=== PATIENT | male | born 1955 | race Caucasian/White ===

== ENCOUNTER 2020-07-30 09:39 | Inpatient (IN) ==
[2020-07-30] MEDS ORDERED: DEXTROSE 50% 25 GM/50 ML VIAL IV PRN ×2 (10:56)
[2020-07-30] MEDS ORDERED: GLUCAGON 1 MG VIAL IM PRN ×2 (10:56)
[2020-07-30 13:06] LABS: Basophils # 0.1 10*3/uL (0.0-0.2); Basophils % 0.9 % (0.0-0.8); Eosinophils # 0.2 10*3/uL (0.0-0.87); Hematocrit 42.1 VOL% (42.0-52.0); Hemoglobin 14.4 GM/DL (14.0-18.0); Immature Granulocytes % 0.3 %; Immature Granulocytes Absolute 0.02 #; Lymphocytes # 2.3 10*3/uL (1.4-4.0); Mean Corpuscular HGB Conc 34.2 GM/DL (32-36); Mean Corpuscular Volume 89.2 FL (87-102); Mean Platelet Volume 11.7 FL (9.6-12.0); Neutrophils % 59.8 % (38.7-73.9); Platelet Count 174 T/CUMM (130-400); Red Blood Count 4.72 MC/CUMM (3.8-5.5); Red Cell Distribution Width 13.2 % (9.3-17.3)
[2020-07-30] MEDS ORDERED: INFLUENZA VIRUS VACCINE 0.5 ML SYRINGE IM ONE (13:09)
[2020-07-30 13:31] LABS: Albumin 3.9 G/DL (3.4-5.0); Bilirubin,Total 0.5 MG/DL (0.2-1.0); Calcium 9.1 MG/DL (8.5-10.1); Osmolality,Calculated 281.5 MOS/KG (273-304); Total Protein 7.8 G/DL (6.4-8.3)
[2020-07-30] MEDS ORDERED: CLORAZEPATE 3.75 MG TABLET PO PRN (14:38)
[2020-07-30] MEDS ORDERED: NITROGLYCERIN SL 0.4 MG TABLET SL PRN (14:39)
[2020-07-30] MEDS ORDERED: MORPHINE 4 MG/1 ML VIAL IV PRN (14:39)
[2020-07-30 18:37] LABS: ABG Base Excess -1.3 MMOL/L (-2.5-2.5); ABG HCO3 23.3 MMOL/L (20-26); ABG Oxygen Saturation 96.9 % (95-100); ABG PCO2 36.8 MM HG (35-48); ABG PH 7.403 (7.35-7.45); ABG PO2 82.2 MM HG (80-95); ABG TCO2 19.9 MMOL/L (23-27); Allen Test Positive; Pt O2 Delivery Device Room Air
[2020-07-30] MEDS: INSULIN REGULAR 100 UNIT/ML SUBCUT SCH ×2 (20:04→22:22)
[2020-07-30] MEDS: CHLORHEXIDINE 4% SOLN 118 ML BOTTLE TOP SCH ×2 (20:07→21:53)
[2020-07-30] MEDS: CHLORHEXIDINE 0.12% ORAL RINSE 60 ML BOTTLE SWISH/SPIT SCH (22:23)
[2020-07-31] MEDS: SODIUM CHLORIDE 0.9% 1,000 ML IV SCH ×2 (01:00→11:07)
[2020-07-31] MEDS ORDERED: PAPAVERINE 60 MG/2 ML VIAL ONE (04:20)
[2020-07-31] MEDS ORDERED: VANCOMYCIN 500 MG VIAL ONE (04:20)
[2020-07-31] MEDS ORDERED: VANCOMYCIN 1,000 MG VIAL ONE (04:20)
[2020-07-31] MEDS ORDERED: SEVOFLURANE 1 UNIT/15 MINUTE INH ONE (05:55)
[2020-07-31] MEDS ORDERED: MINERAL OIL/PETROLATUM OPH OINT 3.5 GM TUBE ONE (05:55)
[2020-07-31] MEDS ORDERED: PHENYLEPHRINE 10 MG/1 ML VIAL IV ONE (05:56)
[2020-07-31] MEDS ORDERED: AMINOCAPROIC ACID 5,000 MG/20 ML VIAL ONE ×4 (05:56)
[2020-07-31] MEDS ORDERED: VECURONIUM 10 MG VIAL IV ONE ×4 (05:56)
[2020-07-31] MEDS ORDERED: MIDAZOLAM 10 MG/2 ML VIAL ONE ×4 (05:57)
[2020-07-31] MEDS ORDERED: SUFentanil 250 MCG/5 ML AMP ONE ×2 (05:57→07:34)
[2020-07-31] MEDS ORDERED: ETOMIDATE 40 MG/20 ML VIAL IV ONE (05:58)
[2020-07-31] MEDS ORDERED: CALCIUM CHLORIDE 1,000 MG/10 ML VIAL IV ONE (05:58)
[2020-07-31] MEDS ORDERED: LIDOCAINE 2% 5 ML VIAL ONE ×2 (05:58→11:15)
[2020-07-31] MEDS ORDERED: HEPARIN/NACL 0.9% 2 UNITS/ML 500 ML IV ONE (05:59)
[2020-07-31] MEDS ORDERED: SODIUM CHLORIDE 0.9% 250 ML IV ONE (05:59)
[2020-07-31] MEDS ORDERED: CEFUROXIME INJ 1,500 MG in SYRINGE 1 EACH IV ONE (06:00)
[2020-07-31] MEDS ORDERED: LACTATED RINGERS 1,000 ML IV ONE (06:01)
[2020-07-31] MEDS ORDERED: SODIUM CHLORIDE 0.9% 1,000 ML IV ONE (06:01)
[2020-07-31] MEDS ORDERED: PANTOPRAZOLE 40 MG TABLET PO ONE (06:30)
[2020-07-31] MEDS ORDERED: LORazepam 1 MG TABLET PO ONE (06:30)
[2020-07-31 07:33] LABS: ABG Base Excess -2.2 MMOL/L (-2.5-2.5); ABG HCO3 22.6 MMOL/L (20-26); ABG Oxygen Saturation 99.7 % (95-100); ABG PCO2 43.4 MM HG (35-48); ABG PH 7.345 (7.35-7.45); ABG TCO2 20.6 MMOL/L (23-27); Glucose Heart Surgery 126 MG/DL (74-106); Hematocrit Heart Surgery 41.9 PERCENT (42-52); Hemoglobin Heart Surgery 13.6 G/DL (14.0-18.0); Ionized Calcium Arterial 1.21 MMOL/L (1.21-1.46); PCO2 Patient Temp Arterial 43.4 MMHG; PH Patient Temp Arterial 7.345; Patient Temperature 37 CELCIUS; Sodium Heart/CVR 140 MMOL/L (135-145)
[2020-07-31] MEDS ORDERED: ALBUMIN 5% 12.5 GM/250 ML VIAL IV ONE (07:34)
[2020-07-31] MEDS ORDERED: PHENYLEPHRINE DRIP 40 MG/250 ML PREMIX IV ONE (07:35)
[2020-07-31 07:38] LABS: Bilirubin,Urine Negative (Negative); Blood, Urine Negative (Negative); Glucose,Urine (UA) >=500 mg/dL (Negative); Ketones,Urine Negative (Negative); Mucus,Urine Occasional /LPF (Occasional); Nitrite,Urine Negative (Negative); Protein,Urine Negative; RBC,Urine 2 /HPF (0-4); Urine Appearance CLEAR (Clear); Urine Color Straw (Yellow); Urine Specific Gravity 1.016 (1.001-1.035); Urine Urobilinogen < 2.0 EU/DL (0.2-1.0)
[2020-07-31] MEDS ORDERED: diphenhydrAMINE 50 MG/1 ML VIAL ONE (08:15)
[2020-07-31 09:37] LABS: Hematocrit Heart Surgery 32.5 PERCENT (42-52); Hemoglobin Heart Surgery 10.5 G/DL (14.0-18.0); PH Patient Temp Venous 7.394; PO2 Patient Temp Venous 37.6 MM HG; Potassium Heart/CVR 5.1 MMOL/L (3.5-5.1); VBG Base Excess -0.3 MEQ/L (0-4); VBG HCO3 23.9 MEQ/L (24-28); VBG Oxygen Saturation 80.6 %; VBG PCO2 46.3 MMHG (41-51); VBG PH 7.351; VBG PO2 46.2 MMHG (17-40)
[2020-07-31] MEDS ORDERED: FAMOTIDINE 20 MG/2 ML VIAL IV ONE (09:42)
[2020-07-31 10:06] LABS: PCO2 Patient Temp Venous 39.3 MM HG; PH Patient Temp Venous 7.406; PO2 Patient Temp Venous 36.2 MM HG; Potassium Heart/CVR 5.7 MMOL/L (3.5-5.1); VBG Base Excess 0.1 MEQ/L (0-4); VBG HCO3 24.1 MEQ/L (24-28); VBG Oxygen Saturation 73.7 %; VBG PCO2 41.3 MMHG (41-51); VBG PH 7.391; VBG PO2 38.8 MMHG (17-40)
[2020-07-31 10:37] LABS: Hematocrit Heart Surgery 36.7 PERCENT (42-52); Hemoglobin Heart Surgery 11.9 G/DL (14.0-18.0); PCO2 Patient Temp Venous 41.9 MM HG; PH Patient Temp Venous 7.382; Potassium Heart/CVR 5.6 MMOL/L (3.5-5.1); VBG Base Excess -0.3 MEQ/L (0-4); VBG HCO3 23.7 MEQ/L (24-28); VBG Oxygen Saturation 71.7 %; VBG PCO2 41.9 MMHG (41-51); VBG PH 7.382
[2020-07-31 11:02] LABS: ABG Base Excess -2.3 MMOL/L (-2.5-2.5); ABG HCO3 22.5 MMOL/L (20-26); ABG PCO2 38.4 MM HG (35-48); ABG PH 7.376 (7.35-7.45); ABG PO2 97.3 MM HG (80-95); ABG TCO2 20.1 MMOL/L (23-27); Glucose Heart Surgery 202 MG/DL (74-106); Hematocrit Heart Surgery 35.8 PERCENT (42-52); Hemoglobin Heart Surgery 11.6 G/DL (14.0-18.0); Ionized Calcium Arterial 1.27 MMOL/L (1.21-1.46); PCO2 Patient Temp Arterial 38.4 MMHG; PH Patient Temp Arterial 7.376; PO2 Patient Temp Arterial 97.3 MM HG; Patient Temperature 37 CELCIUS; Potassium Heart/CVR 4.7 MMOL/L (3.5-5.1); Sodium Heart/CVR 135 MMOL/L (135-145)
[2020-07-31] MEDS: CHLORHEXIDINE 4% SOLN 118 ML BOTTLE TOP SCH (11:07)
[2020-07-31] MEDS: INSULIN REGULAR 100 UNIT/ML SUBCUT SCH (11:07)
[2020-07-31] MEDS: CHLORHEXIDINE 0.12% ORAL RINSE 60 ML BOTTLE SWISH/SPIT SCH ×2 (11:07→20:20)
[2020-07-31] MEDS ORDERED: methylPREDNISolone SOD SUC 1,000 MG/8 ML VIAL ONE (11:15)
[2020-07-31] MEDS ORDERED: HEPARIN 10,000 UNIT/10 ML VIAL ONE (11:15)
[2020-07-31] MEDS ORDERED: DEXTROSE 5% KCL 20 MEQ 20 MEQ/1,000 ML BAG IV ONE (11:15)
[2020-07-31] MEDS ORDERED: MAGNESIUM SULFATE 5 GM/10 ML VIAL IV ONE (11:15)
[2020-07-31] MEDS ORDERED: PROTAMINE SULFATE 250 MG/25 ML VIAL IV ONE (11:15)
[2020-07-31] MEDS ORDERED: ALBUMIN 25% 25 GM/100 ML VIAL IV ONE (11:15)
[2020-07-31] MEDS ORDERED: MANNITOL 100 GM/500 ML BAG IV ONE (11:15)
[2020-07-31] MEDS ORDERED: FUROSEMIDE 20 MG/2 ML VIAL ONE (11:16)
[2020-07-31] MEDS ORDERED: PROTAMINE SULFATE 50 MG/5 ML VIAL IV ONE ×3 (11:16→11:48)
[2020-07-31] MEDS ORDERED: SODIUM BICARBONATE 50 MEQ/50 ML VIAL IV ONE (11:16)
[2020-07-31] MEDS ORDERED: MIDAZOLAM 10 MG/2 ML VIAL IV PRN (11:19)
[2020-07-31] MEDS ORDERED: DEXTROSE 50% 25 GM/50 ML VIAL IV PRN ×2 (11:19)
[2020-07-31] MEDS ORDERED: NITROPRUSSIDE 100 MG in DEXTROSE 5% 250 ML IV PRN (11:19)
[2020-07-31] MEDS ORDERED: ONDANSETRON 4 MG/2 ML VIAL IV PRN (11:19)
[2020-07-31] MEDS ORDERED: MORPHINE 4 MG/1 ML VIAL IV PRN (11:19)
[2020-07-31] MEDS ORDERED: VECURONIUM 10 MG VIAL IV PRN ×2 (11:19)
[2020-07-31] MEDS ORDERED: MAGNESIUM SULF RIDER 2 GM in PREMIX 1 EACH IV PRN (11:19)
[2020-07-31] MEDS ORDERED: CALCIUM CHLORIDE 1,000 MG/10 ML SYRINGE IV PRN (11:19)
[2020-07-31] MEDS ORDERED: MIDAZOLAM 2 MG/2 ML VIAL IV PRN (11:19)
[2020-07-31] MEDS ORDERED: MAGNESIUM SULF RIDER 4 GM in PREMIX 1 EACH IV PRN (11:19)
[2020-07-31] MEDS ORDERED: INSULIN REGULAR 100 UNIT/ML IV PRN (11:19)
[2020-07-31] MEDS ORDERED: CHLORHEXIDINE 4% SOLN 118 ML BOTTLE TOP PRN (11:19)
[2020-07-31] MEDS ORDERED: MORPHINE 10 MG/1 ML VIAL IV PRN (11:19)
[2020-07-31] MEDS ORDERED: PHENYLEPHRINE DRIP 40 MG/250 ML PREMIX IV PRN (11:19)
[2020-07-31] MEDS ORDERED: INSULIN REGULAR 100 UNIT/ML IV ONE (11:19)
[2020-07-31] MEDS ORDERED: LACTATED RINGERS 250 ML IV PRN (11:19)
[2020-07-31] MEDS ORDERED: ACETAMINOPHEN 650 MG SUPP RECTAL PRN (11:19)
[2020-07-31] MEDS ORDERED: INSULIN REGULAR DRIP 100 ML IV SCH (11:30)
[2020-07-31] MEDS: SODIUM CHLORIDE 0.45% 1,000 ML IV SCH ×2 (11:33)
[2020-07-31] MEDS: ALBUMIN 5% 12.5 GM in PREMIX 1 EACH IV PRN ×4 (11:50→15:18)
[2020-07-31 11:55] LABS: ABG Base Excess -1.6 MMOL/L (-2.5-2.5); ABG HCO3 23.1 MMOL/L (20-26); ABG Oxygen Saturation 99.5 % (95-100); ABG PCO2 37.9 MM HG (35-48); ABG PH 7.391 (7.35-7.45); ABG TCO2 20.2 MMOL/L (23-27); Glucose Heart Surgery 166 MG/DL (74-106); Hematocrit Heart Surgery 38.7 PERCENT (42-52); Hemoglobin Heart Surgery 12.6 G/DL (14.0-18.0)
[2020-07-31] MEDS: LACTATED RINGERS 1,000 ML IV PRN ×4 (12:00→15:35)
[2020-07-31 12:03] LABS: Basophils % 0.4 % (0.0-0.8); Eosinophils # 0.1 10*3/uL (0.0-0.87); Eosinophils % 0.6 % (0.00-10.9); Hematocrit 36.2 VOL% (42.0-52.0); Hemoglobin 12.5 GM/DL (14.0-18.0); Immature Granulocytes % 0.4 %; Immature Granulocytes Absolute 0.05 #; Lymphocytes # 0.9 10*3/uL (1.4-4.0); Lymphocytes % 8.2 % (21.2-54.2); Mean Corpuscular HGB Conc 34.5 GM/DL (32-36); Mean Corpuscular Volume 89.2 FL (87-102); Mean Platelet Volume 11.6 FL (9.6-12.0); Monocytes % 3.8 % (1.7-12.7); Neutrophils % 86.6 % (38.7-73.9); Platelet Count 136 T/CUMM (130-400); Red Blood Count 4.06 MC/CUMM (3.8-5.5); Red Cell Distribution Width 13.2 % (9.3-17.3); White Blood Count 11.2 T/CUMM (4-12)
[2020-07-31 12:17] LABS: INR 1.1; PT Patient Result 12.1 SECS (9.8-11.9); Partial Thromboplastin Time 29.6 SECS (23.9-33.8)
[2020-07-31 12:18] LABS: CKMB % 6.9 %
[2020-07-31 12:21] LABS: Troponin I 4.12 NG/ML (0.00-0.045)
[2020-07-31 12:29] LABS: Albumin 3.5 G/DL (3.4-5.0); Bilirubin,Total 0.9 MG/DL (0.2-1.0); Calcium 8.7 MG/DL (8.5-10.1); Osmolality,Calculated 288.1 MOS/KG (273-304); Total Protein 6.1 G/DL (6.4-8.3)
[2020-07-31 12:30] LABS: Platelet Estimate Adequate
[2020-07-31 12:31] LABS: Anisocytosis Slight
[2020-07-31 12:50] LABS: ABG HCO3 22.8 MMOL/L (20-26); ABG Oxygen Saturation 99.4 % (95-100); ABG PCO2 37.5 MM HG (35-48); ABG PH 7.388 (7.35-7.45); ABG TCO2 20.1 MMOL/L (23-27); Glucose Heart Surgery 167 MG/DL (74-106); Hematocrit Heart Surgery 36.6 PERCENT (42-52); Hemoglobin Heart Surgery 11.9 G/DL (14.0-18.0); Potassium Heart/CVR 3.8 MMOL/L (3.5-5.1)
[2020-07-31] MEDS: POTASSIUM CHLORIDE RIDER 10 MEQ in PREMIX 1 EACH IV PRN ×2 (12:59→14:14)
[2020-07-31 13:57] LABS: ABG HCO3 22.8 MMOL/L (20-26); ABG Oxygen Saturation 99.1 % (95-100); ABG PCO2 36.5 MM HG (35-48); ABG PH 7.397 (7.35-7.45); ABG TCO2 20.1 MMOL/L (23-27); Glucose Heart Surgery 178 MG/DL (74-106); Hematocrit Heart Surgery 34.4 PERCENT (42-52); Hemoglobin Heart Surgery 11.1 G/DL (14.0-18.0)
[2020-07-31 15:35] LABS: ABG Base Excess -2.1 MMOL/L (-2.5-2.5); ABG HCO3 22.7 MMOL/L (20-26); ABG Oxygen Saturation 98.5 % (95-100); ABG PH 7.391 (7.35-7.45); ABG TCO2 20.4 MMOL/L (23-27); Glucose Heart Surgery 185 MG/DL (74-106); Potassium Heart/CVR 4.1 MMOL/L (3.5-5.1)
[2020-07-31 15:36] LABS: Hematocrit Heart Surgery 31.7 PERCENT (42-52); Hemoglobin Heart Surgery 10.3 G/DL (14.0-18.0)
[2020-07-31] MEDS: CEFUROXIME INJ 1,500 MG in SYRINGE 1 EACH IV SCH (18:39)
[2020-07-31 20:06] LABS: ABG Base Excess -2.2 MMOL/L (-2.5-2.5); ABG HCO3 22.5 MMOL/L (20-26); ABG PCO2 37.7 MM HG (35-48); ABG PH 7.393 (7.35-7.45); ABG PO2 88.5 MM HG (80-95); ABG TCO2 23.6 MMOL/L (23-27); Glucose Heart Surgery 196 MG/DL (74-106); Hemoglobin Heart Surgery 9.5 G/DL (14.0-18.0); Potassium Heart/CVR 3.7 MMOL/L (3.5-5.1)
[2020-07-31] MEDS: KETOROLAC 30 MG/1 ML VIAL IV SCH (20:17)
[2020-07-31] MEDS: POTASSIUM CHLORIDE RIDER 20 MEQ in PREMIX 1 EACH IV PRN ×4 (20:20→22:35)
[2020-07-31 20:32] LABS: CKMB % 4.7 %
[2020-07-31 20:34] LABS: Troponin I 6.03 NG/ML (0.00-0.045)
[2020-07-31 21:50] LABS: ABG Base Excess -1.2 MMOL/L (-2.5-2.5); ABG HCO3 23.4 MMOL/L (20-26); ABG Oxygen Saturation 97.5 % (95-100); ABG PCO2 39.3 MM HG (35-48); ABG PH 7.386 (7.35-7.45); ABG PO2 95.4 MM HG (80-95); ABG TCO2 21.8 MMOL/L (23-27); Glucose Heart Surgery 165 MG/DL (74-106); Hematocrit Heart Surgery 27.8 PERCENT (42-52); Potassium Heart/CVR 3.9 MMOL/L (3.5-5.1)
[2020-08-01 00:15] LABS: ABG Base Excess -1.7 MMOL/L (-2.5-2.5); ABG HCO3 23.3 MMOL/L (20-26); ABG Oxygen Saturation 95.1 % (95-100); ABG PCO2 40.4 MM HG (35-48); ABG PH 7.379 (7.35-7.45); ABG PO2 80.5 MM HG (80-95); ABG TCO2 24.5 MMOL/L (23-27); Glucose Heart Surgery 154 MG/DL (74-106); Hemoglobin Heart Surgery 10.3 G/DL (14.0-18.0)
[2020-08-01] MEDS: POTASSIUM CHLORIDE RIDER 20 MEQ in PREMIX 1 EACH IV PRN ×2 (00:20→04:30)
[2020-08-01] MEDS ORDERED: FUROSEMIDE 40 MG/4 ML VIAL IV ONE (01:36)
[2020-08-01] MEDS: KETOROLAC 30 MG/1 ML VIAL IV SCH ×2 (02:39→07:44)
[2020-08-01 04:28] LABS: ABG Base Excess -1.1 MMOL/L (-2.5-2.5); ABG HCO3 23.6 MMOL/L (20-26); ABG Oxygen Saturation 95.9 % (95-100); ABG PCO2 39.3 MM HG (35-48); ABG PH 7.396 (7.35-7.45); ABG PO2 84.5 MM HG (80-95); ABG TCO2 24.8 MMOL/L (23-27); Glucose Heart Surgery 123 MG/DL (74-106); Hemoglobin Heart Surgery 10.4 G/DL (14.0-18.0); Potassium Heart/CVR 4.2 MMOL/L (3.5-5.1)
[2020-08-01 04:43] LABS: Basophils % 0.1 % (0.0-0.8); Hematocrit 28.8 VOL% (42.0-52.0); Immature Granulocytes % 0.4 %; Immature Granulocytes Absolute 0.06 #; Lymphocytes % 7.3 % (21.2-54.2); Mean Corpuscular HGB Conc 34.7 GM/DL (32-36); Mean Platelet Volume 12.2 FL (9.6-12.0); Monocytes % 5.6 % (1.7-12.7); Neutrophils % 86.6 % (38.7-73.9); Red Cell Distribution Width 13.6 % (9.3-17.3); White Blood Count 13.7 T/CUMM (4-12)
[2020-08-01 04:44] LABS: Platelet Count 176 T/CUMM (130-400)
[2020-08-01 04:55] LABS: Albumin 3.6 G/DL (3.4-5.0); Bilirubin,Direct 0.14 MG/DL (0.0-0.20); Bilirubin,Total 0.7 MG/DL (0.2-1.0); Calcium 8.3 MG/DL (8.5-10.1); Osmolality,Calculated 289.1 MOS/KG (273-304); Total Protein 6.5 G/DL (6.4-8.3)
[2020-08-01 04:57] LABS: CKMB % 3.6 %
[2020-08-01] MEDS: CEFUROXIME INJ 1,500 MG in SYRINGE 1 EACH IV SCH ×2 (06:25→18:15)
[2020-08-01] MEDS: LACTATED RINGERS 1,000 ML IV PRN (07:54)
[2020-08-01] MEDS ORDERED: INSULIN REGULAR 100 UNIT/ML SUBCUT SCH (08:00)
[2020-08-01] MEDS: CHLORHEXIDINE 0.12% ORAL RINSE 60 ML BOTTLE SWISH/SPIT SCH ×2 (08:13→22:30)
[2020-08-01] MEDS: ALBUMIN 5% 12.5 GM in PREMIX 1 EACH IV PRN (09:01)
[2020-08-01] MEDS ORDERED: ASPIRIN EC 325 MG TABLET PO ONE (09:01)
[2020-08-01 12:08] LABS: CKMB % 3.5 %
[2020-08-01 12:12] LABS: Troponin I 3.39 NG/ML (0.00-0.045)
[2020-08-01] MEDS ORDERED: ZALEPLON 5 MG CAPSULE PO PRN (12:29)
[2020-08-01] MEDS ORDERED: oxyCODONE/ACETAMINOPHEN 5-325 MG TABLET PO PRN (12:29)
[2020-08-01] MEDS ORDERED: GLUCAGON 1 MG VIAL IM PRN (12:29)
[2020-08-01] MEDS ORDERED: MAGNESIUM HYDROXIDE SUSP 30 ML UDCUP PO PRN (12:29)
[2020-08-01] MEDS ORDERED: MAGNESIUM SULF RIDER 2 GM in PREMIX 1 EACH IV PRN (12:29)
[2020-08-01] MEDS ORDERED: POTASSIUM CHLORIDE 20 MEQ TABLET PO PRN (12:29)
[2020-08-01] MEDS ORDERED: DEXTROSE 50% 25 GM/50 ML VIAL IV PRN (12:29)
[2020-08-01] MEDS ORDERED: ALUMINUM/MAGNES/SIMETH MAX STR 30 ML UDCUP PO PRN (12:29)
[2020-08-01] MEDS ORDERED: MAGNESIUM SULF RIDER 4 GM in PREMIX 1 EACH IV PRN (12:29)
[2020-08-01] MEDS ORDERED: SODIUM CHLOR 0.45% KCL 20 MEQ 20 MEQ/1,000 ML BAG IV SCH (12:29)
[2020-08-01] MEDS: INSULIN REGULAR 100 UNIT/ML SUBCUT SCH ×3 (14:18→21:00)
[2020-08-01] MEDS: SODIUM CHLORIDE 0.45% 1,000 ML IV SCH ×2 (14:20)
[2020-08-01] MEDS ORDERED: KETOROLAC 15 MG/1 ML VIAL IV ONE (16:17)
[2020-08-01] MEDS: ROSUVASTATIN 20 MG TABLET PO SCH (21:19)
[2020-08-01] MEDS: ACETAMINOPHEN 325 MG TABLET PO PRN (21:21)
[2020-08-02] MEDS: ACETAMINOPHEN 325 MG TABLET PO PRN (04:26)
[2020-08-02 05:16] LABS: Basophils % 0.1 % (0.0-0.8); Hematocrit 28.3 VOL% (42.0-52.0); Hemoglobin 9.4 GM/DL (14.0-18.0); Immature Granulocytes % 0.6 %; Immature Granulocytes Absolute 0.08 #; Lymphocytes # 1.3 10*3/uL (1.4-4.0); Lymphocytes % 9.3 % (21.2-54.2); Mean Corpuscular HGB Conc 33.2 GM/DL (32-36); Mean Corpuscular Volume 93.1 FL (87-102); Mean Platelet Volume 12.9 FL (9.6-12.0); Monocytes % 5.8 % (1.7-12.7); Neutrophils % 84.2 % (38.7-73.9); Platelet Count 137 T/CUMM (130-400); Red Blood Count 3.04 MC/CUMM (3.8-5.5); Red Cell Distribution Width 14.6 % (9.3-17.3); White Blood Count 13.7 T/CUMM (4-12)
[2020-08-02 05:40] LABS: Alanine Aminotransferase 18 U/L (16-61); Albumin 3.4 G/DL (3.4-5.0); Alkaline Phosphatase 32 U/L (45-117); Aspartate Amino Transferase 18 U/L (0-37); Bilirubin,Total < 0.39 MG/DL (0.2-1.0); Blood Urea Nitrogen 41 MG/DL (7-18); CKMB % 2.3 %; Calcium 8.2 MG/DL (8.5-10.1); Estimated Glom Filtration Rate 78 ML/MIN; Glucose 189 MG/DL (74-106); Osmolality,Calculated 293.4 MOS/KG (273-304); Total Protein 6.5 G/DL (6.4-8.3)
[2020-08-02 05:41] LABS: Bilirubin,Indirect 0.2 MG/DL (0.0-1.0)
[2020-08-02] MEDS ORDERED: FUROSEMIDE 40 MG/4 ML VIAL IV ONE (06:00)
[2020-08-02] MEDS: DOCUSATE SODIUM 100 MG CAPSULE PO SCH (09:01)
[2020-08-02] MEDS: ASPIRIN EC 325 MG TABLET PO SCH (09:02)
[2020-08-02] MEDS: traMADol 50 MG TABLET PO PRN ×3 (09:02→21:23)
[2020-08-02] MEDS: FERROUS SULFATE 325 MG TABLET PO SCH (09:02)
[2020-08-02] MEDS: PANTOPRAZOLE 40 MG TABLET PO SCH (09:02)
[2020-08-02] MEDS: GLIMEPIRIDE 2 MG TABLET PO SCH ×2 (09:05→16:39)
[2020-08-02] MEDS: ASCORBIC ACID 500 MG TABLET PO SCH ×2 (09:07→21:23)
[2020-08-02] MEDS: METOPROLOL SUCCINATE XL 25 MG TABLET PO SCH (09:07)
[2020-08-02] MEDS: INSULIN REGULAR 100 UNIT/ML SUBCUT SCH ×4 (09:08→22:40)
[2020-08-02] MEDS: CHLORHEXIDINE 0.12% ORAL RINSE 60 ML BOTTLE SWISH/SPIT SCH ×2 (10:45→21:28)
[2020-08-02] MEDS: ONDANSETRON 4 MG/2 ML VIAL IV PRN (18:24)
[2020-08-02] MEDS: ROSUVASTATIN 20 MG TABLET PO SCH (21:23)
[2020-08-03] MEDS: traMADol 50 MG TABLET PO PRN ×2 (04:25→22:03)
[2020-08-03 06:19] LABS: Basophils % 0.2 % (0.0-0.8); Eosinophils % 0.1 % (0.00-10.9); Hematocrit 30.2 VOL% (42.0-52.0); Immature Granulocytes % 0.5 %; Immature Granulocytes Absolute 0.07 #; Lymphocytes # 1.7 10*3/uL (1.4-4.0); Lymphocytes % 13.1 % (21.2-54.2); Mean Corpuscular HGB Conc 33.1 GM/DL (32-36); Mean Corpuscular Volume 92.9 FL (87-102); Mean Platelet Volume 12.6 FL (9.6-12.0); Monocytes % 8.1 % (1.7-12.7); NRBC # 0.02 10*3/uL; Platelet Count 144 T/CUMM (130-400); Red Blood Count 3.25 MC/CUMM (3.8-5.5); Red Cell Distribution Width 14.1 % (9.3-17.3); White Blood Count 13.1 T/CUMM (4-12)
[2020-08-03 06:29] LABS: Calcium 8.6 MG/DL (8.5-10.1); Osmolality,Calculated 286.5 MOS/KG (273-304)
[2020-08-03 06:38] LABS: Alanine Aminotransferase 17 U/L (16-61); Albumin 3.6 G/DL (3.4-5.0); Alkaline Phosphatase 38 U/L (45-117); Aspartate Amino Transferase 15 U/L (0-37); Bilirubin,Indirect 0.3 MG/DL (0.0-1.0); Blood Urea Nitrogen 34 MG/DL (7-18); Calcium 8.6 MG/DL (8.5-10.1); Estimated Glom Filtration Rate 107 ML/MIN; Glucose 127 MG/DL (74-106); Osmolality,Calculated 288.4 MOS/KG (273-304)
[2020-08-03] MEDS: INSULIN REGULAR 100 UNIT/ML SUBCUT SCH ×4 (09:39→22:15)
[2020-08-03] MEDS: GLIMEPIRIDE 2 MG TABLET PO SCH ×2 (09:40→18:00)
[2020-08-03] MEDS: FERROUS SULFATE 325 MG TABLET PO SCH (09:41)
[2020-08-03] MEDS: ASPIRIN EC 325 MG TABLET PO SCH (09:41)
[2020-08-03] MEDS: ASCORBIC ACID 500 MG TABLET PO SCH ×2 (09:41→22:03)
[2020-08-03] MEDS: METOPROLOL SUCCINATE XL 25 MG TABLET PO SCH (09:41)
[2020-08-03] MEDS: PANTOPRAZOLE 40 MG TABLET PO SCH (09:41)
[2020-08-03] MEDS: DOCUSATE SODIUM 100 MG CAPSULE PO SCH (09:41)
[2020-08-03] MEDS: ONDANSETRON 4 MG/2 ML VIAL IV PRN (09:44)
[2020-08-03] MEDS: CHLORHEXIDINE 0.12% ORAL RINSE 60 ML BOTTLE SWISH/SPIT SCH ×2 (09:48→22:15)
[2020-08-03] MEDS ORDERED: PROMETHAZINE INJ 12.5 MG in SODIUM CHLORIDE 0.9% 50 ML IV PRN (12:52)
[2020-08-03] MEDS ORDERED: METOCLOPRAMIDE 10 MG/2 ML VIAL IV PRN (12:53)
[2020-08-03] MEDS: ROSUVASTATIN 20 MG TABLET PO SCH (22:03)
[2020-08-04 06:24] LABS: Basophils % 0.2 % (0.0-0.8); Eosinophils # 0.1 10*3/uL (0.0-0.87); Eosinophils % 0.6 % (0.00-10.9); Hematocrit 32.2 VOL% (42.0-52.0); Hemoglobin 10.4 GM/DL (14.0-18.0); Immature Granulocytes % 0.5 %; Immature Granulocytes Absolute 0.05 #; Lymphocytes # 1.4 10*3/uL (1.4-4.0); Lymphocytes % 13.4 % (21.2-54.2); Mean Corpuscular HGB Conc 32.3 GM/DL (32-36); Mean Corpuscular Volume 92.8 FL (87-102); Mean Platelet Volume 12.7 FL (9.6-12.0); Monocytes % 9.2 % (1.7-12.7); Neutrophils % 76.1 % (38.7-73.9); Platelet Count 156 T/CUMM (130-400); Red Blood Count 3.47 MC/CUMM (3.8-5.5); Red Cell Distribution Width 13.5 % (9.3-17.3); White Blood Count 10.6 T/CUMM (4-12)
[2020-08-04 06:31] LABS: Calcium 8.7 MG/DL (8.5-10.1); Osmolality,Calculated 281.7 MOS/KG (273-304)
[2020-08-04] MEDS ORDERED: OLMESARTAN 5 MG TABLET PO SCH (09:00)
[2020-08-04] MEDS: DOCUSATE SODIUM 100 MG CAPSULE PO SCH (09:21)
[2020-08-04] MEDS: ASPIRIN EC 325 MG TABLET PO SCH (09:21)
[2020-08-04] MEDS: ASCORBIC ACID 500 MG TABLET PO SCH ×2 (09:21→21:42)
[2020-08-04] MEDS: POLYETHYLENE GLYCOL POWDER 17 GM PACK PO SCH (09:21)
[2020-08-04] MEDS: metFORMIN 500 MG TABLET PO SCH (09:22)
[2020-08-04] MEDS: CHLORHEXIDINE 0.12% ORAL RINSE 60 ML BOTTLE SWISH/SPIT SCH ×2 (09:22→21:42)
[2020-08-04] MEDS: PANTOPRAZOLE 40 MG TABLET PO SCH (09:22)
[2020-08-04] MEDS: FERROUS SULFATE 325 MG TABLET PO SCH (09:22)
[2020-08-04] MEDS: METOPROLOL SUCCINATE XL 25 MG TABLET PO SCH (09:22)
[2020-08-04] MEDS: GLIMEPIRIDE 2 MG TABLET PO SCH ×2 (09:22→16:50)
[2020-08-04] MEDS: INSULIN REGULAR 100 UNIT/ML SUBCUT SCH ×4 (09:25→21:42)
[2020-08-04] MEDS: ROSUVASTATIN 20 MG TABLET PO SCH (21:41)
[2020-08-04] MEDS: traMADol 50 MG TABLET PO PRN (21:42)
[2020-08-05] MEDS ORDERED: LACTULOSE 20 GM/30 ML UDCUP PO ONE (05:59)
[2020-08-05 06:26] LABS: Basophils % 0.4 % (0.0-0.8); Eosinophils # 0.1 10*3/uL (0.0-0.87); Eosinophils % 0.9 % (0.00-10.9); Hematocrit 33.6 VOL% (42.0-52.0); Hemoglobin 11.2 GM/DL (14.0-18.0); Immature Granulocytes % 0.5 %; Immature Granulocytes Absolute 0.06 #; Lymphocytes # 1.9 10*3/uL (1.4-4.0); Mean Corpuscular HGB Conc 33.3 GM/DL (32-36); Mean Corpuscular Volume 91.3 FL (87-102); Mean Platelet Volume 12.4 FL (9.6-12.0); Monocytes % 10.4 % (1.7-12.7); Neutrophils % 70.8 % (38.7-73.9); Platelet Count 187 T/CUMM (130-400); Red Blood Count 3.68 MC/CUMM (3.8-5.5); Red Cell Distribution Width 13.3 % (9.3-17.3); White Blood Count 11.2 T/CUMM (4-12)
[2020-08-05 06:51] LABS: Calcium 8.6 MG/DL (8.5-10.1); Osmolality,Calculated 280.7 MOS/KG (273-304)
[2020-08-05 06:58] LABS: Alanine Aminotransferase 18 U/L (16-61); Albumin 3.2 G/DL (3.4-5.0); Alkaline Phosphatase 43 U/L (45-117); Aspartate Amino Transferase 14 U/L (0-37); Bilirubin,Indirect 0.8 MG/DL (0.0-1.0); Blood Urea Nitrogen 28 MG/DL (7-18); Calcium 8.8 MG/DL (8.5-10.1); Estimated Glom Filtration Rate 119 ML/MIN; Glucose 109 MG/DL (74-106); Osmolality,Calculated 281.7 MOS/KG (273-304); Total Protein 7.1 G/DL (6.4-8.3)
[2020-08-05 07:02] LABS: Troponin I 0.699 NG/ML (0.00-0.045)
[2020-08-05 07:56] VITALS: BP 116/69
[2020-08-05] MEDS ORDERED: OLMESARTAN 5 MG TABLET PO SCH (09:00)
[2020-08-05] MEDS: INSULIN REGULAR 100 UNIT/ML SUBCUT SCH (09:02)
[2020-08-05] MEDS: metFORMIN 500 MG TABLET PO SCH (09:58)
[2020-08-05] MEDS: FERROUS SULFATE 325 MG TABLET PO SCH (09:58)
[2020-08-05] MEDS: ASPIRIN EC 325 MG TABLET PO SCH (09:58)
[2020-08-05] MEDS: METOPROLOL SUCCINATE XL 25 MG TABLET PO SCH (09:59)
[2020-08-05] MEDS: GLIMEPIRIDE 2 MG TABLET PO SCH (09:59)
[2020-08-05] MEDS: ASCORBIC ACID 500 MG TABLET PO SCH (09:59)
[2020-08-05] MEDS: PANTOPRAZOLE 40 MG TABLET PO SCH (09:59)
[2020-08-05] MEDS: POLYETHYLENE GLYCOL POWDER 17 GM PACK PO SCH (10:00)
[2020-08-05] MEDS: DOCUSATE SODIUM 100 MG CAPSULE PO SCH (10:00)
[2020-08-05] MEDS: CHLORHEXIDINE 0.12% ORAL RINSE 60 ML BOTTLE SWISH/SPIT SCH (10:00)
== END 2020-08-05 11:16 | disposition home or self-care (01) | DRG 236 ==
LOC: N.TELES 12:08 → N.CVR 07-31 11:27 → N.TELES 08-01 10:59